=== PATIENT | female | born 1985 | race Caucasian/White ===

== ENCOUNTER 2017-04-28 21:14 | Inpatient (IN) | payer OTHER ==
[~2017-04-28] VITALS: Ht 152.4 cm; Wt 118.8 kg
[~2017-04-28 21:14] MED LIST: ATARAX25 MG PO; BENADRYL25 MG PO; ELOCON TP; MEDROL8 MG PO; MEDROLPACK PO; VALISONE15 GM TP; ZYRTEC10 M3 PO
[2017-04-28] MEDS ORDERED: SYNTHROID50 MCG (21:40)
[2017-05-01] MEDS ORDERED: CIPRO500 MG PO (08:48)
[2017-05-01] MEDS ORDERED: LEVOTHYROXINE25 MCG PO (08:48)
[2017-05-01] MEDS ORDERED: FLAGYL500MG PO (08:48)
[2017-05-01] MEDS ORDERED: HYOSCYAMINE0.125 M1 SL (08:48)
[2017-05-01] MEDS ORDERED: PROTONIX40 MG PO (08:48)
== END 2017-05-01 11:41 | disposition home or self-care (01) | DRG 392 ==
LOC: ER 21:14 → SEC-K 04-29 06:42 → MEDI 04-29 15:13
DX: K57.32 Diverticulitis of large intestine without perforation or abscess without bleeding (principal)

== ENCOUNTER → 2018-07-27 | Emergency (ER) | payer OTHER ==
[~2018-07-27] VITALS: Ht 152.4 cm; Wt 99.8 kg
[~2018-07-27] MED LIST changes: +CIPRO500 MG PO; +FLAGYL500MG PO; +HYOSCYAMINE0.125 M1 SL; +LEVOTHYROXINE25 MCG PO; +MECLIZINE HCL25 MG PO; +PROTONIX40 MG PO; +SYNTHROID50 MCG; +ZEBUTAL 50-3251 EACH PO
== END | disposition home or self-care (01) ==
LOC: ER 21:43
DX: R20.0 Anesthesia of skin (principal)

== ENCOUNTER 2024-01-29 09:19 | Outpatient (CLI) | payer OTHER | END 2024-01-29 09:29 | disposition home or self-care (01) | LOC: SONOGRAMA 09:19 | PROVIDERS: ATTEND Specialist | DX: N84.9 Polyp of female genital tract, unspecified (principal) ==